=== PATIENT | female | born 1985 | race Caucasian/White ===

== ENCOUNTER 2016-06-23 21:21 | Day surgery (SDC) | payer OTHER ==
[2016-06-23 22:01] LABS: ABSOLUTE NEUTROPHIL COUNT 12.5 K/mm3 (1.8-7.7); BASO # 0.1 K/mm3 (0.0-0.2); BASO % 0.4 % (0.2-1.0); EOS # 0.1 (0.0-0.5); EOS % 0.8 % (0.9-2.9); HEMATOCRIT 37.6 % (37.0-47.0); HEMOGLOBIN 12.8 gm/l (12.0-16.0); IMM NEUT # 0.1 K/mm3 (0-0.2); IMM NEUT% 0.4 % (0-1); LYMPH # 4.8 (1.0-4.8); LYMPH % 26.1 % (15-45); MEAN CELL VOLUME 85.3 fl (81.0-99.0); MEAN PLATELET VOLUME 11.6 fl (7.4-10.4); MONO # 0.9 (0.0-0.8); MONO % 4.9 % (4-12); NEUT % 67.4 % (43-75); PLATELET COUNT 205 K/mm3 (130-400); RED CELL DISTRIBUTION WIDTH 12.2 % (11.5-14.5)
[2016-06-23 22:10] LABS: ALB/GLOB RATIO 1.4 (>1.0); ALBUMIN 3.8 gm/dL (3.5-5.7); CALCIUM 9.1 mg/dL (8.6-10.3)
[2016-06-23] MEDS ORDERED: ONDANSETRON 4 MG/2ML 2 ML VIAL ONE (23:19)
[2016-06-23] MEDS ORDERED: SODIUM CHLORIDE 0.9% 1,000 ML ONE (23:20)
[2016-06-24] MEDS ORDERED: LACTATED RINGERS 1,000 ML ONE ×2 (01:49→04:04)
[2016-06-24 02:05] LABS: HEMATOCRIT 29.4 % (37.0-47.0); HEMOGLOBIN 9.9 gm/l (12.0-16.0)
[2016-06-24] MEDS ORDERED: PUMP TUBING ONE ×2 (04:04→07:31)
[2016-06-24 04:23] LABS: HEMOGLOBIN 8.9 gm/l (12.0-16.0)
[2016-06-24] MEDS ORDERED: IV START KIT ONE (04:47)
[2016-06-24] MEDS ORDERED: SODIUM CHLORIDE 0.9% FLUSH 10 ML ONE (04:47)
[2016-06-24] MEDS ORDERED: DEXAMETHASONE SOD PHOS 4 MG/1 ML VIAL ONE (05:06)
[2016-06-24] MEDS ORDERED: ONDANSETRON 4 MG/2ML 2 ML VIAL ONE (05:06)
[2016-06-24] MEDS ORDERED: PROPOFOL 20 ML IV ONE (05:06)
[2016-06-24] MEDS ORDERED: SUCCINYLCHOLINE CHL 20 MG/ML DOSE ONE (05:06)
[2016-06-24] MEDS ORDERED: MIDAZOLAM HCL 1 MG/ML 2ML VIAL ONE (05:06)
[2016-06-24] MEDS ORDERED: FENTANYL 100 MCG/2 ML VIAL ONE (05:06)
[2016-06-24] MEDS ORDERED: LIDOCAINE 2% (MULTI DOSE) 10 ML VIAL ONE (05:08)
[2016-06-24] MEDS ORDERED: BLOOD Y PLUMSET W/CASSETTE ONE (05:11)
[2016-06-24] MEDS ORDERED: SODIUM CHLORIDE 0.9% 250 ML IV ONE (05:12)
[2016-06-24] MEDS ORDERED: OXYTOCIN 10 UNITS/ML VIAL ONE (05:18)
[2016-06-24] MEDS ORDERED: MISOPROSTOL 200 MCG TABLET ONE (05:18)
[2016-06-24] MEDS ORDERED: METHYLERGONOVINE MALEATE 0.2 MG/ML 1ML AMP ONE (05:19)
[2016-06-24] MEDS ORDERED: CARBOPROST TROMETH 250 MCG/ML AMP IM ONE (05:19)
[2016-06-24] MEDS ORDERED: DOXYCYCLINE HYCLATE 100 MG TABLET ONE (05:40)
[2016-06-24] MEDS ORDERED: PHENYLEPHRINE 10 MG/1 ML (1%) VIAL ONE (06:13)
[2016-06-24] MEDS ORDERED: FAMOTIDINE 10 MG/ML 2ML VIAL IV ONE (07:10)
[2016-06-24] MEDS ORDERED: KETOROLAC TROMETHAMINE 30 MG/ML 1 ML VIAL IV PRN (07:10)
[2016-06-24] MEDS ORDERED: ONDANSETRON 4 MG/2ML 2 ML VIAL IV PRN (07:10)
[2016-06-24] MEDS ORDERED: IBUPROFEN 200 MG TABLET PO PRN (07:10)
[2016-06-24] MEDS ORDERED: OXYCODONE/ACETAMINOPHEN 5/325 MG TABLET PO PRN (07:10)
[2016-06-24] MEDS ORDERED: LACTATED RINGERS 1,000 ML IV SCH (07:15)
--- NOTE | 2016-06-24 08:09 | US ---
Exam: Complete obstetric ultrasound less than 14 weeks COMPARISON: None INDICATION: Miscarriage with medication. FINDINGS: Transabdominal and transvaginal obstetric ultrasound less than 14 weeks was obtained. Screedman/Laborer noted that the patient was bleeding heavily during the exam. No intrauterine is identified. Uterus measures 9.6 x 5.0 x 6.1 cm and is heterogeneous in echotexture. There is a large avascular slightly heterogeneous solid focus of tissue which extends from the lower uterine segment, through the cervix and into the posterior fornix of the vagina reflecting either products of conception or a large blood clot. The endometrium is heterogeneous measuring up to 12 mm in bilayer thickness on the transvaginal exam within the body of the uterus. Right ovary measures 2.0 x 1.4 x 2.4 cm and left ovary measures 1.3 x 2.8 x 2.5 cm. There is no cystic or solid ovarian mass. Corpus luteum appears to be located on the right. Blood flow is present within both ovaries. There is no significant free fluid in cul-de-sac. IMPRESSION: Large amount of avascular heterogeneous solid material extending from the lower uterine segment, through the cervix into the upper vagina, either reflecting products of conception or a large hematoma. Ensure patient's beta hCG returns to 0. Preliminary report transmitted to the emergency department from [facility] at 0039 hours 06/24/2016.
[2016-06-24 08:20] VITALS: BMI 25.4
--- NOTE | 2016-06-24 08:27 | PDOC43 ---
- Subjective Subjective: Reports Pain Tolerable (pt reports minimal pain, scant bleeding. s/ p 1 unit PRBC and hgb=8.9 prior.) - Objective Vital Signs Temperature 98.2 F 06/24/16 07:30 Pulse Rate 72 06/24/16 07:30 Respiratory Rate 12 06/24/16 07:30 Blood Pressure 99/44 06/24/16 07:30 O2 Saturation by Pulse Oximetry 99 06/24/16 07:30 Oxygen Delivery Method Room Air Oxygen Flow Rate 0 Active Medication Orders Category Date Time Status Ibuprofen [Advil] Med 06/24/16 07:10 Active 600 mg PO Q6H PRN Ketorolac Tromethamine [Toradol] Med 06/24/16 07:10 Active 30 mg IV Q6H PRN Lactated Ringers 1,000 ml Med 06/24/16 07:15 Active IV 125 mls/hr Ondansetron 4 mg/2ml Vial [Zofran] Med 06/24/16 07:10 Active 4 mg IV Q4-6H PRN Oxycodone HCl/Acetaminophen [Percocet 5/325] Med 06/24/16 07:10 Active 1 - 2 tab PO Q4H PRN Sodium Chloride 0.9% Flush [Normal Saline 10ml Flush] Med 06/24/16 07:26 Active 10 ml IV PRN PRN Sodium Chloride 0.9% Flush [Normal Saline 10ml Flush] Med 06/24/16 09:00 Active 10 ml IV Q8HR Intake and Output 06/22/16 06/23/16 06/24/16 23:59 23:59 23:59 Intake Total 1000 Output Total 750 Balance 250 General: No Acute Distress Cardiovascular: Regular Rate and Rhythm Abdomen: Soft, Non-Distended, No Tenderness - Disposition: Disposition: Stable (pt is now stable. s/p 1 unit PRBC. check another H/H at this time, transfuse if <8. Otherwise may discharge today with rx for percocet , motrin, iron and f/u with Dr. Lee 2w.)
[2016-06-24 09:01] LABS: HEMATOCRIT 29.9 % (37.0-47.0); HEMOGLOBIN 10.5 gm/l (12.0-16.0)
--- NOTE | 2016-06-24 09:38 | OP ---
Rhiannon Novoa DATE OF PROCEDURE: 06/24/2016 SURGEON: Shavonne Lee D.O. PREOPERATIVE DIAGNOSIS: Incomplete . POSTOPERATIVE DIAGNOSIS: Incomplete . PROCEDURE: Suction dilation and curettage. ANESTHESIA: General. FINDINGS: Six week sized uterus, dilated cervix with productis of conception. CONDITION: Stable. FLUIDS: 1 liter. BLOOD: She had 2 units of packed red blood cells running at the time of surgery. ESTIMATED BLOOD LOSS: 50 mL. SPECIMENS: Products of conception. DRAINS: None. DESCRIPTION OF PROCEDURE: The patient was taken back to the operating room where she received 100 mg doxycycline by mouth and general anesthesia was easily obtained. She was prepped and draped in a dorsolithotomy position with candy cane stirrups in a normal sterile fashion. A weighted speculum was placed in the posterior aspect of the vagina and a right angle retractor was placed in the anterior aspect of the vagina. The cervix was visualized and grasped with a single tooth tenaculum. The cervix was dilated and products of conception were present. A 7 Curved suction was gently introduced into the patient's uterus and several passes were made. Once the uterine cavity was evacuated all instruments were removed from the patient's vagina and the procedure was determined to be complete. A bimanual exam revealed a firm uterus and hemostasis was identified. The patient was easily aroused from anesthesia and transferred to PACU in stable condition. JOB: [id number]
[2016-06-24 13:27] VITALS: BP 99/51
--- NOTE | 2016-06-26 09:11 | SURGPATH ---
[facility] [address] [place] [id number] Patient Name: ANDRES ISAAC MR#: [id number] : 1985 Gender: F Specimen #: [id number] Collected: 06/24/2016 Received: 06/25/2016 Reported: 06/26/2016 Submitting Phys: BREANA BEYER Copy To Phys: MARSHA TOSCANO [facility] Clinical History / Pre-Operative Diagnosis: SPONTANEOUS MISCARRIAGE; HEAVY BLEEDING; POC IN OS Specimen Source / Surgical Procedure Performed: POC Interpretation: PRODUCTS OF CONCEPTION: - IMMATURE CHORIONIC VILLI, INFLAMED DECIDUA, AND GESTATIONAL ENDOMETRIUM CONSISTENT WITH PRODUCTS OF CONCEPTION. - NO STUDY TISSUE IDENTIFIED. - NO EVIDENCE OF MALIGNANCY. Electronically Signed Out Scooter Yen M.D., Ph.D. Gross Description: The specimen is received in two formalin filled specimen containers each labeled with the patient's name and "POC". An aggregate of erazo tissue admixed with hemorrhagic material is 6.0 x 4.0 x 2.5 cm and includes a small amount of spongy, membranous, placenta-like tissue. No grossly recognizable tissue is appreciated. Four sales representative groceries sections are submitted in one cassette. Haile Mariee Microscopic Description: Examination of multiple sections from the products of conception shows fragments of immature chorionic villi, inflamed decidua, and gestational endometrium. No somatic tissue is seen. There is no evidence of malignancy. 1: [id number] O03.9
== END 2016-06-24 14:07 | disposition home or self-care (01) ==
LOC: SDC 21:21 → ED 21:21 → SUATTDRO 21:21 → MS 06-24 02:27 → UNDOADMOB 06-24 02:27 → ICU 06-24 04:30 → OBSVTOIN 06-24 04:30 → INTOOBSV 06-24 04:30 → MS 06-24 04:30 → SDC 06-24 08:19 → ED 06-24 08:19 → ICU 06-24 11:55 → SDC 06-24 14:07
PROVIDERS: ATTEND Obstetrics & Gynecology
PROC: 10D17ZZ Extraction of Products of Conception, Retained, Via Natural or Artificial Opening (ICD-10-PCS; principal; 2016-06-23)
PROC: 30233N1 Transfusion of Nonautologous Red Blood Cells into Peripheral Vein, Percutaneous Approach (ICD-10-PCS; 2016-06-24)
DX: O03.4 Incomplete spontaneous abortion without complication (principal); Z3A.01 Less than 8 weeks gestation of pregnancy
CPT/HCPCS: 59812; 36430; 84702; 85025; 80053; 85014 ×3; 85018 ×3; 36415 ×2; 76817; 76801; 86920; 86922; 86921; 86901; 86850 ×3; 99284; 96374; 93005; 99285; J3010; J1100; J2370; A9270; J2250; J2405 ×2; J7120 ×3; J7050; J7030; J2001; P9016

== ENCOUNTER 2016-07-02 10:11 | Observation (INO) | payer OTHER ==
[2016-07-02] MEDS ORDERED: LACTATED RINGERS 1,000 ML ONE (11:07)
[2016-07-02 11:48] LABS: ABSOLUTE NEUTROPHIL COUNT 6.3 K/mm3 (1.8-7.7); BASO % 0.5 % (0.2-1.0); EOS # 0.1 (0.0-0.5); EOS % 1.4 % (0.9-2.9); HEMATOCRIT 34.5 % (37.0-47.0); HEMOGLOBIN 11.4 gm/l (12.0-16.0); IMM NEUT # 0.1 K/mm3 (0-0.2); IMM NEUT% 0.6 % (0-1); LYMPH # 1.7 (1.0-4.8); LYMPH % 19.4 % (15-45); MEAN CELL VOLUME 88.9 fl (81.0-99.0); MEAN CORPUSCULAR HEMOGLOBIN 29.4 pg (27.0-31.0); MONO # 0.4 (0.0-0.8); NEUT % 73.1 % (43-75); PLATELET COUNT 226 K/mm3 (130-400); RED CELL DISTRIBUTION WIDTH 13.8 % (11.5-14.5)
[2016-07-02 11:51] LABS: I-STAT CREATININE 0.6 mg/dL (0.6-1.3)
[2016-07-02] MEDS ORDERED: BLOOD Y PLUMSET W/CASSETTE ONE (14:44)
[2016-07-02] MEDS ORDERED: SODIUM CHLORIDE 0.9% 500 ML ONE (14:44)
[2016-07-02 18:13] VITALS: BP 102/67
[2016-07-03 17:51] LABS: ALB/GLOB RATIO 1.4 (>1.0); CALCIUM 9.2 mg/dL (8.6-10.3)
== END 2016-07-02 18:20 | disposition home or self-care (01) ==
LOC: ED 10:11 → MS 13:01
PROVIDERS: ADMIT Obstetrics & Gynecology; ATTEND Obstetrics & Gynecology
PROC: 30233N1 Transfusion of Nonautologous Red Blood Cells into Peripheral Vein, Percutaneous Approach (ICD-10-PCS; principal; 2016-07-02)
DX: O90.81 Anemia of the puerperium (principal); D62 Acute posthemorrhagic anemia
CPT/HCPCS: 36430 ×2; 85025; 80053; 86920; 86922; 86921; 86901; 86850 ×3; 99284 ×2; 96360; 96361; J7120; J7040; P9016; G0378 ×2